=== PATIENT | female | born 1995 | race Caucasian/White ===

== ENCOUNTER 2016-04-08 09:49 | Emergency (ER) | payer MEDICAID ==
[~2016-04-08] VITALS: Ht 152.4 cm; Wt 45.0 kg
[~2016-04-08 09:49] MED LIST: AMOX500C PO; HYDR-3580 PO; ONDA4TAB7 SL
[2016-04-08 09:50] VITALS: BP 117/76; PULSE 85; RESP 16; TEMP 97.7; O2SAT 99
--- NOTE | 2016-04-08 10:39 | PD ---
HPI . skin problem x 1 week Chief Complaint: Skin Problem Time Seen by Provider: 10:45 Travel History International Travel<30 days: No Contact w/Intl Traveler<30days: No Traveled to known affect area: No History of Present Illness HPI 20 yr old female with no PMH here with c/o a rash that started on her face as a small pimple and now has spread all over her face. Patient has a similar rash in her right groin. She does admit to recently shaving and thinks it may have started from that. Patient admits that the rash starts as a small bump and has some drainage, then it turns into flat blisters that are very itchy. She does admit to using makeup to cover this rash and thinks it may have made it worse. Denies any use of new hygiene products. 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 She denies any fever, chills , pain at the site of the rash. She is accompanied by her father. She tried to get into her PCP, but they could not see her. PFSH Past Medical History Hx Anticoagulant Therapy: No Cardiovascular Problems: No Chemotherapy: No Cerebrovascular Accident: No Diabetes: No Psychiatric: Yes (SUICIDAL THOUGHTS AND DEPRESSION) Respiratory: No Immunizations Current: Yes ?: Not : 0 Para: 0 : 0 Past Surgical History Hysterectomy: No Other Surgery: Yes (ORAL SURGERY) Social History Alcohol Use: Yes (OCC) Tobacco Use: Yes (2PPW) Substance Use: Yes (MARIJUANA EVERY OTHER DAY) Allergies-Medications (Allergen,Severity, Reaction): Coded Allergies: [place] (Verified Allergy, Severe, RASH, 02/14/16) Reported Meds & Prescriptions Reported Meds & Active Scripts Active Bactroban Topical (Mupirocin) 2 % Cream 1 Applic TOPICAL BID Bactrim DS (Sulfamethoxazole-Trimethoprim) 800-160 Mg Tab 1 Tab PO BID Ondansetron Odt 4 Mg Tab 4 Mg SL Q6HR PRN Reported Amoxicillin 500 Mg Cap 500 Mg PO TID Hydrocodone-Acetaminophen 7.5-325 mg Tab 1 Tab PO Q6H PRN Review of Systems General / Constitutional: No: Fever Eyes: No: Visual changes HENT: No: Headaches Cardiovascular: No: Chest Pain or Discomfort Respiratory: No: Shortness of Breath Gastrointestinal: No: Abdominal Pain Genitourinary: No: Dysuria Musculoskeletal: No: Pain Skin: Positive Rash, Positive Itching, Positive Lesions Neurologic: No: Weakness Psychiatric: No: Depression Endocrine: No: Polydipsia Hematologic/Lymphatic: No: Easy Bruising Physical Exam Narrative GENERAL: AAO x 3, no acute distress, Well-nourished, well-developed patient. SKIN: Warm and dry. Small lesions scattered on face that are maculopapular. Some lesions are now formin slight crusts. There is visible clear drainage from one lesion, which was sampled. + erythema around lesions. Rash on face is localized to her nasal area, cheeks, and chin. It spares her forehead and near her eyes. In her groin, the rash is maculopapular and erythematous. No evidence of cellulitis. HEAD: Normocephalic and atraumatic. EYES: No scleral icterus. No injection or drainage. ENT: No nasal drainage noted. Mucous membranes pink. Airway patent. NECK: Supple, trachea midline. No JVD. CARDIOVASCULAR: Regular rate and rhythm without murmurs, gallops, or rubs. RESPIRATORY: Breath sounds equal bilaterally. No accessory muscle use. No rhonchi or rales. GASTROINTESTINAL: Abdomen soft, non-tender, nondistended. EXTREMITIES: No cyanosis or edema. BACK: Nontender without obvious deformity. No CVA tenderness. PSYCH: AAO x 3, normal affect. Data Data Last Documented VS Vital Signs Date Time Temp Pulse Resp B/P Pulse Ox O2 Delivery O2 Flow Rate FiO2 04/08/16 09:50 97.7 85 16 117/76 99 Orders Wound Culture And Gram Stain (04/08/16 10:40) [facility] Medical Decision Making Medical Screen Exam Complete: Yes Emergency Medical Condition: Yes Medical Record Reviewed: Yes Differential Diagnosis cellulitis, contact dermatitis, staph infection Narrative Course 20 yr old female with no PMH here with c/o a rash that started on her face as a small pimple and now has spread all over her face. Patient has a similar rash in her right groin. She does admit to recently shaving and thinks it may have started from that. Patient admits that the rash starts as a small bump and has some drainage, then it turns into flat blisters that are very itchy. She does admit to using makeup to cover this rash and thinks it may have made it worse. Denies any use of new hygiene products. 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 She denies any fever, chills , pain at the site of the rash. She is accompanied by her father. She tried to get into her PCP, but they could not see her. Patient was seen and examined. Culture of the drainage from her face was taken and sent to the lab for further analysis. She was told to caution usage of makeup and new hygiene products. She was given bactroban and bactrim for abx coverage. She was advised to f/u with her PCP and return to ER if her sxs worsen. Diagnosis Primary Impression: Erysipelas Additional Impressions: Cellulitis Qualified Code: L03.211 - Cellulitis of face Contact dermatitis Qualified Code: L24.9 - Irritant contact dermatitis, unspecified trigger Patient Instructions: Cellulitis (ED), General Instructions Additional Instructions: Take medications as prescribed. Follow up with Dr. Tran If your condition worsens, please follow up with the nearest emergency room. Med/Other Pt SpecificInfo: Prescription(s) given Scripts Mupirocin Topical (Bactroban Topical)2 % Cream1 Applic TOPICAL BID #1 TUBE Ref 1 Prov:Amanda Abraham 04/08/16 Sulfamethoxazole-Trimethoprim (Bactrim DS)800-160 Mg Tab1 Tab PO BID #20 TAB Ref 0 Prov:Amanda Abraham 04/08/16 Disposition: 01 DISCHARGE HOME Condition: Stable Amanda Abraham Apr 08, 2016 10:39
[2016-04-08] MEDS ORDERED: MUPI2%T TOPICAL (10:45)
[2016-04-08] MEDS ORDERED: BACT800T5 PO (10:45)
== END 2016-04-08 11:21 | disposition home or self-care (01) ==
LOC: NEPB 09:49
DX: A46 Erysipelas (principal); L03.211 Cellulitis of face; B95.61 Methicillin susceptible Staphylococcus aureus infection as the cause of diseases classified elsewhere; L25.9 Unspecified contact dermatitis, unspecified cause
CPT/HCPCS: 86403; 87070; 87186; 99283

== ENCOUNTER 2016-12-13 17:54 | Emergency (ER) | payer OTHER, MEDICAID ==
[~2016-12-13] VITALS: Ht 152.4 cm; Wt 50.0 kg
[~2016-12-13 17:54] MED LIST changes: +BACT800T5 PO; +MUPI2%T TOPICAL
[2016-12-13 17:55] VITALS: BP 119/81; PULSE 74; RESP 18; TEMP 97.9; O2SAT 97
[2016-12-13] MEDS ORDERED: IBUP800T23 PO (19:09)
[2016-12-13] MEDS ORDERED: CYCL1TAB29 PO (19:09)
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
== END 2016-12-13 19:36 | disposition home or self-care (01) ==
LOC: NEPK 17:54
DX: S29.012A Strain of muscle and tendon of back wall of thorax, initial encounter (principal); V43.52XA Car driver injured in collision with other type car in traffic accident, initial encounter; Z72.0 Tobacco use
CPT/HCPCS: 99283

== ENCOUNTER 2017-08-02 13:58 | Emergency (ER) | payer SELFPAY ==
[~2017-08-02] VITALS: Ht 152.4 cm; Wt 47.9 kg
[~2017-08-02 13:58] MED LIST changes: +CYCL10TA PO; +IBUP1TAB7 PO
[2017-08-02 14:08] VITALS: BP 132/95; PULSE 82; RESP 17; TEMP 98; O2SAT 98
[2017-08-02] MEDS ORDERED: SODIUM CHLOR 0.9% 1000 ML INJ 1,000 ML IV ONE (14:30)
[2017-08-02] MEDS ORDERED: ONDANSETRON ODT 4 MG TAB PO ONE (14:30)
--- NOTE | 2017-08-02 14:31 | PD ---
HPI Chief Complaint: GI Complaint Time Seen by Provider: 14:16 Travel History International Travel<30 days: No Contact w/Intl Traveler<30days: No Traveled to known affect area: No History of Present Illness HPI 21-year-old female complains of headache, nausea vomiting. Patient states that the symptoms started this morning. Patient stated headache is aching headache intermittent headache and relieved with vomiting. Patient denies any visual change. Patient denies any neck pain. Patient denies any chest pain or shortness of breath. Patient states that she has mild intermittent abdominal cramping. Patient denies any dysuria frequency. Patient denies any vaginal discharge or bleeding. Patient has implant control method. Patient denies any head injury. Patient denies any recent sick contact. Patient denies any fever chills. Patient denies any history of recurrent headache. PFSH Past Medical History Hx Anticoagulant Therapy: No Cardiovascular Problems: No Chemotherapy: No Cerebrovascular Accident: No Diabetes: No Psychiatric: Yes Respiratory: No Immunizations Current: Yes ?: Not LMP: NEXPLAN[place]-DOES NOT GET THEM : 0 Para: 0 : 0 Past Surgical History Hysterectomy: No Other Surgery: Yes (ORAL SURGERY) Social History Alcohol Use: Yes (OCC) Tobacco Use: Yes (2PPW) Substance Use: Yes (MARIJUANA EVERY OTHER DAY) Allergies-Medications (Allergen,Severity, Reaction): Coded Allergies: [place] (Unverified Allergy, Severe, RASH, 08/02/17) Reported Meds & Prescriptions Reported Meds & Active Scripts Active Review of Systems General / Constitutional: No: Fever Eyes: No: Visual changes HENT: Positive: Headaches Cardiovascular: No: Chest Pain or Discomfort Respiratory: No: Shortness of Breath Gastrointestinal: Positive: Nausea, Vomiting, No: Abdominal Pain Genitourinary: No: Dysuria Musculoskeletal: No: Pain Skin: No Rash Neurologic: No: Weakness Psychiatric: No: Depression Endocrine: No: Polydipsia Hematologic/Lymphatic: No: Easy Bruising Physical Exam Narrative GENERAL: Well-nourished, well-developed patient. SKIN: Focused skin assessment warm/dry. HEAD: Normocephalic. EYES: No scleral icterus. No injection or drainage. Pupils 2 mm equal reactive. NECK: Supple, trachea midline. No JVD or lymphadenopathy. No meningismus CARDIOVASCULAR: Regular rate and rhythm without murmurs, gallops, or rubs. RESPIRATORY: Breath sounds equal bilaterally. No accessory muscle use. GASTROINTESTINAL: Abdomen soft, non-tender, nondistended. MUSCULOSKELETAL: No cyanosis, or edema. BACK: Nontender without obvious deformity. No CVA tenderness. Neurologic exam normal. Data Data Last Documented VS Vital Signs Date Time Temp Pulse Resp B/P (MAP) Pulse Ox O2 Delivery O2 Flow Rate FiO2 08/02/17 14:08 98.0 82 17 132/95 (107) 98 Orders Orders Complete Blood Count With Diff (08/02/17 14:22) Comprehensive Metabolic Panel (08/02/17 14:22) Urinalysis - C+S If Indicated (08/02/17 14:22) Iv Access Insert/Monitor (08/02/17 14:22) Sodium Chlor 0.9% 1000 Ml Inj (Ns 1000 M (08/02/17 14:30) Ondansetron Odt (Zofran Odt) (08/02/17 14:30) Ketorolac Inj (Toradol Inj) (08/02/17 14:45) Labs Laboratory Tests Test 08/02/17 14:25 08/02/17 14:30 Urine Collection Type CLEAN CATCH Urine Color YELLOW Urine Turbidity CLEAR Urine pH 7.0 Urine Specific [place] 1.020 Urine Protein TRACE mg/dL Urine Glucose (UA) NEG mg/dL Urine Ketones TRACE mg/dL Urine Occult Blood NEG Urine Nitrite NEG Urine Bilirubin NEG Urine Urobilinogen 1.0 MG/DL Urine Leukocyte Esterase NEG Urine WBC 0-2 /hpf Urine Squamous Epithelial Cells 6-8 /hpf Microscopic Urinalysis Comment CULT NOT INDICATED White Blood Count 6.3 TH/MM3 Red Blood Count 4.74 MIL/MM3 Hemoglobin 14.3 GM/DL Hematocrit 42.0 % Mean Corpuscular Volume 88.6 FL Mean Corpuscular Hemoglobin 30.1 PG Mean Corpuscular Hemoglobin Concent 34.0 % Red Cell Distribution Width 12.6 % Platelet Count 212 TH/MM3 Mean Platelet Volume 10.1 FL Neutrophils (%) (Auto) 85.5 % Lymphocytes (%) (Auto) 11.5 % Monocytes (%) (Auto) 2.0 % Eosinophils (%) (Auto) 0.2 % Basophils (%) (Auto) 0.8 % Neutrophils # (Auto) 5.4 TH/MM3 Lymphocytes # (Auto) 0.7 TH/MM3 Monocytes # (Auto) 0.1 TH/MM3 Eosinophils # (Auto) 0.0 TH/MM3 Basophils # (Auto) 0.1 TH/MM3 CBC Comment AUTO DIFF Blood Urea Nitrogen 6 MG/DL Creatinine 0.52 MG/DL Random Glucose 91 MG/DL Total Protein 8.1 GM/DL Albumin 4.3 GM/DL Calcium Level 8.8 MG/DL Alkaline Phosphatase 57 U/L Aspartate Amino Transf (AST/SGOT) 25 U/L Alanine Aminotransferase (ALT/SGPT) 22 U/L Total Bilirubin 0.4 MG/DL Sodium Level 140 MEQ/L Potassium Level 3.9 MEQ/L Chloride Level 107 MEQ/L Carbon Dioxide Level 26.2 MEQ/L Anion Gap 7 MEQ/L Estimat Glomerular Filtration Rate 150 ML/MIN [facility] Medical Decision Making Medical Screen Exam Complete: Yes Emergency Medical Condition: Yes Interpretation(s) 1519 p.m. CBC within normal limits. CMP within normal limits. UA negative. Differential Diagnosis Differential diagnosis including viral syndrome, gastroenteritis, dehydration, electrolyte imbalance, migraine headache, tension headache, cluster headache. Narrative Course 21-year-old female with headache, nausea vomiting. Normal saline solution 1 L IV bolus. Zofran 4 mg ODT. Toradol 30 mg IV. Diagnosis Primary Impression: Gastroenteritis Patient Instructions: General Instructions Additional Instructions: Tylenol for headache. Zofran as needed for nausea vomiting. Clear fluid today and advance diet tomorrow. Follow-up with personal physician. Return to persistent problem or worse. Med/Other Pt SpecificInfo: Prescription(s) given Scripts Ondansetron Odt (Zofran Odt) 4 Mg Tab 4 MG SL Q6HR Y for Nausea/Vomiting, #10 TAB 0 Refills Prov: Tahir Jiménez MD 08/02/17 Disposition: 01 DISCHARGE HOME Condition: Stable Tahir Jiménez MD Aug 02, 2017 14:31
[2017-08-02] MEDS ORDERED: KETOROLAC TROMETHAMINE 30 MG/ML (IVP) VIAL IV PUSH ONE (14:45)
[2017-08-02 14:54] LABS: BILIRUBIN, URINE NEG (NEG); BLOOD, URINE NEG (NEG); GLUCOSE,URINE NEG (NEG); KETONE, URINE TRACE mg/dL (NEG); NITRITE,URINE NEG (NEG); URINE COLOR YELLOW (YELLW/STRAW); URINE LEUKOCYTE ESTERASE NEG (NEG)
[2017-08-02 15:02] LABS: WBC, URINE 0-2 /hpf (0-5)
[2017-08-02 15:06] LABS: AUTOMATED NEUTROPHIL # 5.4 TH/MM3 (1.8-7.7); BASOPHIL # 0.1 TH/MM3 (0-0.2); BASOPHIL % 0.8 % (0.0-2.0); EOSINOPHIL % 0.2 % (0.0-4.0); HEMOGLOBIN 14.3 GM/DL (11.6-15.3); LYMPH % 11.5 % (9.0-44.0); LYMPHOCYTE # 0.7 TH/MM3 (1.0-4.8); MEAN CELL VOLUME 88.6 FL (80.0-100.0); MEAN CORPUSCULAR HEMOGLOBIN 30.1 PG (27.0-34.0); MEAN PLATELET VOLUME 10.1 FL (7.0-11.0); MONOCYTE # 0.1 TH/MM3 (0-0.9); NEUT % 85.5 % (16.0-70.0); PLATELET COUNT 212 TH/MM3 (150-450); RED BLOOD COUNT 4.74 MIL/MM3 (4.00-5.30); RED CELL DISTRIBUTION WIDTH 12.6 % (11.6-17.2); WHITE BLOOD COUNT 6.3 TH/MM3 (4.0-11.0)
[2017-08-02 15:07] LABS: CHLORIDE 107 MEQ/L (98-107); SODIUM (NA) 140 MEQ/L (136-145)
[2017-08-02 15:10] LABS: ALBUMIN 4.3 GM/DL (3.4-5.0); CALCIUM 8.8 MG/DL (8.5-10.1)
[2017-08-02 15:11] LABS: BICARBONATE 26.2 MEQ/L (21.0-32.0); BLOOD UREA NITROGEN 6 MG/DL (7-18); GLUCOSE,RANDOM 91 MG/DL (74-106)
[2017-08-02 15:14] LABS: ALT (GPT) 22 U/L (9-42); AST (GOT) 25 U/L (16-38); CREATININE 0.52 MG/DL (0.50-1.00); GLOMERULAR FILTRATION RATE 150 ML/MIN (>89)
[2017-08-02 15:15] LABS: TOTAL BILIRUBIN ADULT 0.4 MG/DL (0.2-1.0); TOTAL PROTEIN 8.1 GM/DL (6.4-8.2)
[2017-08-02 15:17] LABS: ALKALINE PHOSPHATASE 57 U/L (45-117)
[2017-08-02] MEDS ORDERED: ZOFR4TAB3 SL (15:22)
[2017-08-02 15:40] VITALS: BP 114/68
== END 2017-08-02 15:41 | disposition home or self-care (01) ==
LOC: PHED 13:58
DX: K52.9 Noninfective gastroenteritis and colitis, unspecified (principal); R51 Headache; F17.200 Nicotine dependence, unspecified, uncomplicated; F12.90 Cannabis use, unspecified, uncomplicated
CPT/HCPCS: 80053; 81001; 85025; 96374; 99284; J1885; J7030